=== PATIENT | male | born 1985 | race Caucasian/White ===

== ENCOUNTER 2018-04-05 18:09 | Emergency (ER) | payer BC, SELFPAY ==
[2018-04-05 18:11] VITALS: BP 151/93; PULSE 75; RESP 14; TEMP 36.1; O2SAT 100; BMI 33.4
[2018-04-05 20:10] VITALS: PULSE 68; RESP 16; O2SAT 98
--- NOTE | 2018-04-05 20:34 | CT_ITS ---
STUDY: CT BRAIN WITHOUT CONTRAST REASON FOR EXAM: Male, 33 years old. Vertigo with nausea and vomiting RADIATION DOSAGE (If Supplied By Facility): CTDIvol = ( 44.99 ) mGy, DLP = ( 829.85 ) mGycm TECHNIQUE: Transaxial CT imaging of the brain was performed without administration of intravenous contrast material. Individualized dose optimization techniques were used for this CT. COMPARISON: None. FINDINGS: Normal soft tissue structures. Normal calvarium. Normal size ventricles and extra-axial spaces for the patient's age. Normal white matter tracts of the cerebral hemispheres. Normal basal ganglia and thalami. Normal brainstem. Normal cerebellum. There is no intracranial hemorrhage. There are no findings of an acute ischemic infarction. Normal visualized paranasal sinuses. CT/Brain/Head without Contrast IMPRESSION: Normal unenhanced CT scan of the brain. Electronically Signed: Mick Dee MD at 21:45 EST , Service support ,
--- NOTE | 2018-04-05 20:36 | ED.VISSUMM ---
- ER Visit Summary Date of Service: 04/05/18 Chief Complaint: Vertigo History of Present Illness: The patient is a 33 M presenting with dizziness and spinning sensation. His symptoms have been intermittent since Tuesday. He states it worsened today. He went to urgent care. His blood pressure was elevated and he was advised to come to the ED. He was given meclizine. He states this did not improve his symptoms. His symptoms are worse when he turns his head or stands up. Blood pressure was running in the 160s systolic at home. He denies chest pain or shortness of breath. Denies vomiting, complains of nausea. Denies headache. Denies fever. Denies numbness or weakness. Denies vision or speech changes. Denies other complaints. Physical Examination: Vitals are stable. Patient is afebrile. Alert no acute distress. HEENT exam is unremarkable. Neck is supple. No meningismus Lungs are clear and equal bilaterally. Heart is regular rate and rhythm. Abdomen is soft nontender nondistended. Extremities are unremarkable. Skin is warm and dry. No focal neurologic deficit. Normal strength and sensation. Remainder of exam is unremarkable. Emergency Department Course and Treatment: Patient was given IV fluids, Phenergan, Valium. BMP is unremarkable. CT head shows no acute process. On reevaluation, patient has improvement of his symptoms. He is able to stand and ambulate with improvement. He is requesting discharge home. He is given prescription for Valium and Zofran. He is advised to follow-up with his primary care physician or Dr. Alvarez director of curriculum and instruction for ENT. Advised return to ED for any worsening complaints. Disposition: Discharge home Impression: Benign positional vertigo This note was generated with [employer] dictation software. It may contain incorrect words, spelling, and punctuation that were not noted in review of the chart prior to signing ED Disposition - Plan for ED Patient: Chief Complaint: Dizziness Instructions: ED BPV Vertigo Prescriptions: Ondansetron [Zofran Odt] 4 mg PO Q8H PRN PRN #10 tablet PRN Reason: Nausea Diazepam [Valium] 2 mg PO TID PRN PRN #10 tablet PRN Reason: Vertigo Referrals: Nolberto Coleman MD [Primary Care Provider] - Erick Alvarez MD [STAFF PHYSICIAN] -
[2018-04-05] MEDS: proMETHazine 25 MG/ML Syringe 6.25 MG IV (20:56)
[2018-04-05] MEDS: 0.9% Normal Saline 1,000 ML 1000 ML IV (20:56)
[2018-04-05] MEDS: diazePAM 5 MG Tablet PO (20:56)
[2018-04-05 21:26] LABS: Anion Gap 9 (5-15); BUN 14 mg/dL (7-18); BUN/Creat Ratio 12.7 RATIO (10-20); Calcium,Total 8.9 mg/dL (8.5-10.1); Chloride 106 mmol/L (98-107); EST Glomerular Filtration Rate 82 mL/min (>60); Est Glom Filt Rate - Afr Amer 99 mL/min (>60); Estimated Creatinine Clearance 98.62 ml/min; Glucose 108 mg/dL (74-106); Potassium 4.9 mmol/L (3.5-5.1); Sodium Level 137 mmol/L (136-145)
--- NOTE | 2018-04-05 22:53 | ED.DEP ---
ED Disposition - Plan for ED Patient: Chief Complaint: Dizziness Instructions: ED BPV Vertigo Prescriptions: Ondansetron [Zofran Odt] 4 mg PO Q8H PRN PRN #10 tablet PRN Reason: Nausea Diazepam [Valium] 2 mg PO TID PRN PRN #10 tablet PRN Reason: Vertigo Referrals: Nolberto Coleman MD [Primary Care Provider] - Erick Alvarez MD [STAFF PHYSICIAN] -
[2018-04-05 23:11] VITALS: BP 149/88; PULSE 64; RESP 17; O2SAT 97
== END 2018-04-05 23:12 | disposition home or self-care (01) ==
PROVIDERS: Emergency Provider Emergency Medicine; Family Provider Family Medicine; PCP Family Medicine
DX: H81.10 Benign paroxysmal vertigo, unspecified ear (principal); I10 Essential (primary) hypertension; G47.33 Obstructive sleep apnea (adult) (pediatric)
CPT/HCPCS: 70450; 80048; 96361; 96374; 99283; J7030

== ENCOUNTER 2020-12-01 13:42 | Emergency (ER) | payer OTHER, SELFPAY ==
[2020-12-01 13:43] VITALS: BP 190/121; PULSE 71; RESP 20; TEMP 36.7; O2SAT 98; BMI 37.6
--- NOTE | 2020-12-01 13:48 | ED.RN ---
NO OLD EKG IN OUR SYSTEM
[2020-12-01 13:54] VITALS: BP 184/119; PULSE 78; RESP 16; TEMP 36.6; O2SAT 100
--- NOTE | 2020-12-01 14:19 | RAD_ITS ---
EXAM: XR CHEST, 1 VIEW : 1985 CLINICAL INDICATION: chest pain TECHNIQUE: Frontal view of the chest. This report was created using [employer] report generation technology. COMPARISON: None. FINDINGS: LUNGS AND PLEURAL SPACES: Unremarkable. No consolidation or edema. No pneumothorax. No effusion. HEART: Unremarkable. Cardiac silhouette not enlarged. MEDIASTINUM: Central airways and mediastinal contour are unremarkable. BONES/JOINTS: Unremarkable. SOFT TISSUES: Unremarkable. RAD/Chest 1 View (Portable) IMPRESSION: No radiographic evidence of acute cardiopulmonary disease. at 1540 Reported and signed by: Alvarado Guaman MD Electronically Signed: Alvarado Guaman MD at 15:38 EDT Tel , Service support ,
--- NOTE | 2020-12-01 14:19 | EKG12_ITS ---
Test Reason : CP Blood Pressure : / mmHG Vent. Rate : 073 BPM Atrial Rate : 073 BPM P-R Int : 150 ms QRS Dur : 094 ms QT Int : 392 ms P-R-T Axes : 041 060 046 degrees QTc Int : 431 ms Normal sinus rhythm Normal ECG Confirmed by LORRAINE OVERTON, NYA ([id number]), editor managing newspaper YEE LIPSCOMB ([id number]) on 12/03/2020 9:47:47 AM Referred By: RELL Confirmed By:NYA PETERS MD
--- NOTE | 2020-12-01 14:20 | ED.VIS.CHEST ---
HPI History of Present Illness Chief Complaint: Chest Pain Narrative Narrative: 35-year-old male presenting with chest pain. He describes it as heaviness. This occurred this morning and lasted about 10 minutes. He stated he felt lightheaded while this occurred. Patient later in the day developed a cough which he describes as dry. He does not have any shortness of breath. He denies fever, change in taste and smell. He states that last evening after being out in the sun all day he thought he might of had some chills but he also stated he could be dehydrated. Patient states he did not drink a lot of water last evening and felt like he was not hungry. Patient does state that he has no exposure to COVID-19 that he knows of. He states that he has not been vaccinated for COVID-19. Patient denies any cardiac history. He has no history of DVT or risk factors for DVT. Patient does also relate having a headache over the weekend. He states that it came on pretty fast and lasted a couple of hours. He states that it took me out. He states that he has experienced some dizziness and stumbling over the course of the weekend. He checked his blood pressure today and noted that it was very elevated. He states that his baseline is 140s over 90s even while taking hydrochlorothiazide and lisinopril. He does admit that he has not taken his blood pressure medicine all weekend. He states that it does not usually get this high when he does forget to take his medications. He took hydrochlorothiazide this morning. [facility] Medical History HLD (hyperlipidemia) Hypertension Home Medications lisinopril [Zestril] 1 tab PO DAILY #30 tablet 08/26/15 [Rx Last Taken Unknown] diazepam 2 mg PO TID PRN PRN #10 tablet 04/05/18 [Rx Last Taken Unknown] fenofibrate 1 tab PO DAILY 04/05/18 [History Last Taken Unknown] meclizine 12.5 mg PO DAILY PRN PRN 04/05/18 [History Last Taken Unknown] niacin 50 mg PO DAILY 04/05/18 [History Last Taken Unknown] omega 7-rhm-hot-fish oil [Fish Oil] 500 mg PO DAILY 04/05/18 [History Last Taken Unknown] ondansetron 4 mg PO Q8H PRN PRN #10 tab 04/05/18 [Rx Last Taken Unknown] atorvastatin 10 mg PO DAILY 12/01/20 [History Last Taken Unknown] hydrochlorothiazide 25 mg PO DAILY 12/01/20 [History Last Taken Unknown] Allergy/AdvReac Type Severity Reaction Status Date / Time No Known Allergies Allergy Verified 04/05/18 18:10 Social History Smoking Status: Never smoker ROS ROS ED Constitutional Constitutional ED: Reports chills; Denies fever(s) or sweats Eyes Eyes: Denies blurry vision or change in vision ENT ENT ED: Denies rhinorrhea or sore throat Cardiovascular Cardiovascular: Reports chest pain Respiratory/Chest Respiratory/Chest: Reports cough; Denies dyspnea, dyspnea on exertion or sputum Gastrointestinal Gastrointestinal: Denies abdominal pain, constipation, diarrhea, nausea or vomiting Genitourinary Genitourinary ED: Denies dysuria or hematuria Musculoskeletal Musculoskeletal: Reports myalgias; Denies arthralgias, back pain or neck pain Integumentary Denies Abrasions or rash Neurologic Neurologic: Reports headache(s); Denies paresthesias EXAM Physical Exam Const Vital Signs: 12/01/20 13:43 12/01/20 13:54 12/01/20 14:19 Temperature 98.1 F 97.8 F Temperature Source Temporal Temporal Pulse Rate 71 78 Respiratory Rate 20 H 16 Respiratory Effort Normal Non-Labored Respiratory Pattern Normal Blood Pressure 190/121 H 184/119 H Blood Pressure Mean 144 140 Pulse Ox 98 100 Oxygen Delivery Method Room Air Room Air Room Air Fraction of Inspired Oxygen (FIO2) 97 12/01/20 16:19 12/01/20 16:43 12/01/20 17:15 Temperature 97.8 F 98.6 F Temperature Source Temporal Temporal Pulse Rate 74 66 86 Respiratory Rate 19 H 18 19 H Respiratory Effort Respiratory Pattern Blood Pressure 168/102 H 149/107 H 167/92 H Blood Pressure Mean 124 121 117 Pulse Ox 95 98 92 Oxygen Delivery Method Room Air Room Air Room Air Fraction of Inspired Oxygen (FIO2) Positive well nourished General Appearance ED: NAD; Negative for pallor HEENT Reports moist mucous membranes normocephalic and atraumatic Eyes PERRL and EOMs intact bilaterally General Eye ED: Negative for pale conjunctiva or scleral icterus Neck no lymphadenopathy and supple Resp normal respiratory effort and clear to auscultation bilaterally Auscultation: Negative for rales, rhonchi or wheezes Cardio regular rate and regular rhythm Extremity normal to inspection General Extremety ED: Negative for edema or tenderness General Extremity: Negative for edema Neuro oriented x3, CN's II-XII intact bilaterally and no sensory deficits noted Sensorium / Orientation: awake and alert Motor Exam: strength 5/5 throughout Psych mental status grossly normal Skin no rashes or lesions noted and no wounds General Skin Exam: Negative for jaundice or pallor Heart Score History: Slightly/Non-Suspicious ECG: Nonspecific Repolarization Age: </= 45 years Risk Factors: 1 or 2 Risk Factors Score: 2 MDM MDM MDM Narrative Medical decision making narrative: Presenting with chest pain which she describes as pressure-like. This is been ongoing for a couple of days. Patient admits to not taking his blood pressure medication over the weekend and states that his blood pressure has been elevated. He describes a headache on Tuesday as well as some abnormal gait over the weekend. He currently only has a mild headache. His blood pressure was elevated at 190/121 on arrival. He took lisinopril and hydrochlorothiazide this morning however this is with out taking this for the last couple of days. Patient's EKG on my interpretation shows normal sinus rhythm at [address] elevation, depression, ischemic changes. Chest x-ray on my interpretation shows no acute cardiopulmonary process and the radiologist does agree. Blood work done today is normal. He had 2 high-sensitivity troponins that are both 6. Covid testing today is negative. Patient received 2 doses of 5 mg of hydralazine with his blood pressure dropping to 167/92. CT of the brain is negative. I feel this is appropriate given his history of hypertension and being off his medications for a couple of days. He will continue his medications at home and take a blood pressure diary so he can report to his primary care physician. Given his negative troponins I feel this is less likely ACS. Patient is PERC negative. Discussed all findings with patient and he is amenable to being discharged home at this time. Impression: 1. Chest pain 2. High blood pressure, established [id number] 3. Medical noncompliance 4. Headache Lab Data Labs: Laboratory Results - last 24 hr 12/01/20 12/01/20 12/01/20 13:50 13:50 15:50 WBC 5.7 RBC 4.78 Hgb 14.3 Hct 40.4 MCV 84.5 MCH 29.9 MCHC 35.4 RDW Std Deviation 37.5 RDW Coeff of Sofía 12.4 Plt Count 206 MPV 9.5 Immature Gran % (Auto) 0.200 Neut % (Auto) 51.2 Lymph % (Auto) 34.6 [place] % (Auto) 8.9 Eos % (Auto) 4.4 Baso % (Auto) 0.7 Absolute Neuts (auto) 2.9 Absolute Lymphs (auto) 1.98 Nucleated RBC % 0 Sodium 139 Potassium 3.9 Chloride 108 H Carbon Dioxide 26.0 Anion Gap 5 BUN 13 Creatinine 1.02 Estim Creat Clear Calc 104.37 Est GFR (MDRD) Af Amer 106 Est GFR (MDRD) Non-Af 88 BUN/Creatinine Ratio 12.7 Glucose 102 Calcium 8.5 Total Bilirubin 0.50 AST 62 H ALT 97 H Alkaline Phosphatase 94 Troponin I High Sens 6 6 Total Protein 7.3 Albumin 4.1 Globulin 3.2 Albumin/Globulin Ratio 1.3 Radiography Diagnostic Testing: Radiology Impression Chest X-Ray 12/01/20 14:19 IMPRESSION: No radiographic evidence of acute cardiopulmonary disease. at 1540 Reported and signed by: Alvarado Guaman MD Electronically Signed: Alvarado Guaman MD at 15:38 EDT Tel , Service support , Brain CT 12/01/20 14:50 IMPRESSION: Normal unenhanced CT scan of the brain. Electronically Signed: Cat Yuen MD at 15:15 EDT Tel , Service support , Discharge Plan Triage Chief Complaint: Chest Pain ED Provider: Librado Martinez Dx/Rx/DC Orders Instructions: ED Chest Pain, Noncardiac, ED Hypertension, Established Prescriptions: No Action lisinopril [Zestril] 40 MG tablet 1 tab PO DAILY Qty: 30 RF: 0 fenofibrate 160 MG tablet 1 tab PO DAILY RF: 0 niacin 50 MG tablet 50 mg PO DAILY RF: 0 omega 0-gyw-trl-fish oil [Fish Oil] 500 MG Capsule.Dr 500 mg PO DAILY RF: 0 meclizine 12.5 MG tablet 12.5 mg PO DAILY PRN PRN (Reason: DIZZ) RF: 0 diazepam 2 MG tablet 2 mg PO TID PRN PRN (Reason: Vertigo) Qty: 10 RF: 0 ondansetron 4 MG tablet 4 mg PO Q8H PRN PRN (Reason: Nausea) Qty: 10 RF: 0 atorvastatin 10 mg tablet 10 mg PO DAILY RF: 0 hydrochlorothiazide 25 mg tablet 25 mg PO DAILY RF: 0 Primary Care Provider: Nolberto Coleman Referrals: Nolberto Coleman MD [Primary Care Provider] - Disposition Disposition: Home, Self Care Discharge Date/Time: 12/01/20 17:16
[2020-12-01 14:42] LABS: Absolute Lymphocyte Count 1.98 X10^3/uL (0.83-4.51); Absolute Neutrophil Count 2.9 X10^3/uL (2.0-7.7); Basophil# 0.04 X10^3/uL; Basophil% 0.7 % (0-1); Eosinophil# 0.25 X10^3/uL; Eosinophils% 4.4 % (0-5); Hematocrit 40.4 % (40-54); Hemoglobin 14.3 g/dL (13.0-16.5); Lymphocyte # 1.98 X10^3/ul (0.83-4.51); Lymphocyte % 34.6 % (19-41); Mean Corp Hgb Conc 35.4 g/dL (32-36); Mean Corpuscular Hgb 29.9 pg (27.0-32.0); Mean Corpuscular Volume 84.5 fL (80-94); Mean Platelet Vol. 9.5 fl (6.2-12.0); Monocyte# 0.51 X10^3/uL; Monocyte% 8.9 % (0-10); NRBC Flagged by Analyzer 0 % (0-5); Neutrophil # 2.94 X10^3/uL (2.7-7.7); Neutrophil % 51.2 % (47-70); Platelet Count 206 K/mm3 (150-450); RBC Distribution Width CV 12.4 % (11.6-14.6); RBC Distribution Width SD 37.5 fl (35.1-43.9); Red Blood Count 4.78 M/mm3 (4.6-6.2); White Blood Count 5.7 K/mm3 (4.4-11.0)
[2020-12-01 14:47] LABS: ALB/GLOB Ratio 1.3 RATIO (0.9-2.4); AST(SGOT) 62 U/L (15-37); Alanine Aminotransfer ALT/SGPT 97 U/L (16-61); Albumin, Serum 4.1 g/dL (3.2-5.0); Alkaline Phosphatase 94 U/L (45-117); Anion Gap 5 (5-15); BUN 13 mg/dL (7-18); BUN/Creat Ratio 12.7 RATIO (10-20); Calcium,Total 8.5 mg/dL (8.5-10.1); Chloride 108 mmol/L (98-107); Creatinine, Serum 1.02 mg/dL (0.70-1.30); EST Glomerular Filtration Rate 88 mL/min (>60); Est Glom Filt Rate - Afr Amer 106 mL/min (>60); Estimated Creatinine Clearance 104.37 ml/min; Globulin 3.2 g/dL (2.2-4.2); Glucose 102 mg/dL (74-106); Potassium 3.9 mmol/L (3.5-5.1); Protein, Total 7.3 g/dL (6.4-8.2); Sodium Level 139 mmol/L (136-145); Troponin-I HS 6 pg/mL (3.0-78.0)
[2020-12-01] MEDS: hydrALAZINE 20 MG/ML Vial 5 MG IV ×2 (14:49→16:41)
--- NOTE | 2020-12-01 14:50 | CT_ITS ---
STUDY: CT BRAIN WITHOUT CONTRAST REASON FOR EXAM: Male, 35 years old. headache RADIATION DOSAGE (If Supplied By Facility): CTDIvol = ( 44.99 ) mGy, DLP = ( 829.85 ) mGycm TECHNIQUE: Transaxial CT imaging of the brain was performed without administration of intravenous contrast material. Individualized dose optimization techniques were used for this CT. COMPARISON: No relevant priors. FINDINGS: Normal size ventricles and extra-axial spaces for the patient''s age. Normal white matter tracts of the cerebral hemispheres. There is no intracranial hemorrhage. There are no findings of an acute ischemic infarction. Normal visualized paranasal sinuses. CT/Brain/Head without Contrast IMPRESSION: Normal unenhanced CT scan of the brain. Electronically Signed: Cat Yuen MD at 15:15 EDT Tel , Service support ,
[2020-12-01 16:19] VITALS: BP 168/102; PULSE 74; RESP 19; TEMP 36.6; O2SAT 95
[2020-12-01 16:22] LABS: Troponin-I HS 6 pg/mL (3.0-78.0)
[2020-12-01 16:43] VITALS: BP 149/107; PULSE 66; RESP 18; O2SAT 98
[2020-12-01 17:15] VITALS: BP 167/92; PULSE 86; RESP 19; TEMP 37; O2SAT 92
== END 2020-12-01 17:16 | disposition home or self-care (01) ==
PROVIDERS: Emergency Provider Student in an Organized Health Care Education/Training Program; PCP Family Medicine
DX: R07.9 Chest pain, unspecified (principal); R51.9 Headache, unspecified; Z91.19 Patient's noncompliance with other medical treatment and regimen; R03.0 Elevated blood-pressure reading, without diagnosis of hypertension; E78.5 Hyperlipidemia, unspecified; I10 Essential (primary) hypertension
CPT/HCPCS: 70450; 71045; 80053; 84484; 85025; 87426; 93005; 96374; 96376; 99284; A4216

== ENCOUNTER → 2022-05-26 | Outpatient (CLI) | payer OTHER, SELFPAY ==
--- NOTE | 2022-05-26 13:25 | NEURO_ITS ---
NCS and/or EMG Patient Report Ordering Doctor: Nolberto Coleman DATE OF SERVICE: 05/26/22 Reuben presents for electrodiagnostic testing of the lower limbs. He reports numbness in the second digit of the left foot, present for about 2 years. He also reports an intermittent quotation oliver crawling sensation in both legs which is intermittent. Electrodiagnostic findings: Peroneal motor nerve demonstrates normal distal latency, amplitude and conduction velocity bilaterally. Normal tibial motor response bilaterally. Normal peroneal and tibial F waves. H reflex is prolonged bilaterally. Sensory responses are within normal limits. On needle EMG, all muscles tested in the lower limbs show no evidence of denervation with normal motor unit action potentials. Electrodiagnostic findings: This is a normal electrodiagnostic study in the lower limbs. There is no electrodiagnostic evidence for peripheral polyne uropathy or lumbosacral radiculopathy.
== END | disposition home or self-care (01) ==
PROVIDERS: PCP Family Medicine; Visit Provider Family Medicine
DX: R20.0 Anesthesia of skin (principal)
CPT/HCPCS: 95886; 95913